=== PATIENT | male | born 1955 | race African-American/Black ===

== ENCOUNTER 2016-10-31 07:05 | Day surgery (SDC) | payer OTHER ==
[~2016-10-31] VITALS: Ht 172.7 cm; Wt 63.5 kg
[2016-10-31 07:45] LABS: BASOPHILS # (AUTO) 0.1 K/uL (0.00-0.22); BASOPHILS % (AUTO) 1.6 % (0.0-2.0); EOSINOPHILS # (AUTO) 0.2 K/uL (0-0.4); EOSINOPHILS % (AUTO) 3.5 % (0.0-4.0); HEMATOCRIT 42.5 % (36-52); HEMOGLOBIN 14.2 g/dL (12.0-18.0); LYMPHOCYTES # (AUTO) 1.2 K/uL (2.0-11.5); LYMPHOCYTES % (AUTO) 21.2 % (20.5-51.1); MEAN CORPUSCULAR HEMOGLOBIN 31 pg (27-31); MEAN CORPUSCULAR HGB CONC 33 g/dL (33-37); MEAN CORPUSCULAR VOLUME 93 fL (80-94); MONOCYTES # (AUTO) 0.6 K/uL (0.8-1.0); MONOCYTES % (AUTO) 10.1 % (1.7-9.3); NEUTROPHILS # (AUTO) 3.6 K/uL (1.8-7.7); NEUTROPHILS % (AUTO) 63.6 % (42.2-75.2); PLATELET COUNT (AUTO) 289 K/uL (140-450); RED BLOOD CELL COUNT(AUTO) 4.58 MIL/uL (4.20-6.10); RED CELL DISTRIBUTION WIDTH 13.2 % (11.6-13.7); WHITE BLOOD COUNT (AUTO) 5.7 K/uL (4.8-10.8)
[2016-10-31] MEDS ORDERED: LIDOCAINE 2% 1000 MG/50 ML VIAL INJ ONE (07:51)
[2016-10-31 08:05] LABS: INR 1.2 (0.8-1.2); PROTHROMBIN TIME 11.6 secs (10.8-13.4)
[2016-10-31 08:07] LABS: ALBUMIN 3.4 g/dL (3.4-5.0); ANION GAP 9.3 (8-16); CALCIUM 8.7 mg/dL (8.5-10.1); CARBON DIOXIDE 28.7 mmol/L (21-32); CREATININE 1.1 mg/dL (0.6-1.3); TOTAL BILIRUBIN 0.4 mg/dL (0.0-1.0); TOTAL PROTEIN, SERUM 7.2 g/dL (6.4-8.2)
[2016-10-31] MEDS ORDERED: RANI15SY2 PO (08:16)
[2016-10-31] MEDS ORDERED: ASPI81CT89 PO (08:16)
[2016-10-31] MEDS ORDERED: MORPHINE SULFATE 2 MG/ML SYR IM PRN (09:10)
[2016-10-31] MEDS ORDERED: MORPHINE SULFATE 2 MG/ML SYR ONE (09:30)
== END 2016-10-31 10:05 | disposition home or self-care (01) ==
LOC: MDS 07:05 → MMU 07:15 → MDS 10:05
PROVIDERS: ATTEND Internal Medicine Gastroenterology
DX: B19.20 Unspecified viral hepatitis C without hepatic coma (principal); E78.5 Hyperlipidemia, unspecified; I21.3 ST elevation (STEMI) myocardial infarction of unspecified site; M19.90 Unspecified osteoarthritis, unspecified site
CPT/HCPCS: 36415; 47000; 76942; 80053; 85025; 85610; 85730; 87522; 88307; 88313; J2001; J2270; Q0092; 80076